=== PATIENT | female | born 1990 | race Caucasian/White ===

== ENCOUNTER 2019-05-28 15:58 | Emergency (ER) | payer OTHER ==
[2019-05-28 16:12] VITALS: BP 100/52; PULSE 104; TEMP 98.5; BMI 21.6
--- NOTE | 2019-05-28 16:13 | PDOC ---
Rapid Medical Evaluation Chief Complaint: Pain Time Seen by Provider: 05/28/19 16:08 Medical Evaluation: Allergies Allergy/AdvReac Type Severity Reaction Status Date / Time No Known Allergies Allergy Verified 05/28/19 16:08 05/28/19 16:11 Pt c/o: 15 weeks preg, 2 days of lower abd pain, no other complaints, had u/s 2 weeks ago and normal IUP Pt on brief exam: vss, no cva tenderness Pt ordered for: labs, urine, and u/s Pt to proceed to the ED Discharge Disposition - Diagnosis Abdominal pain - Discharge Dispostion Disposition: ELOPED - Referrals Referrals: ON STAFF,NOT [Primary Care Provider] - - Patient Instructions - Post Discharge Activity
[2019-05-28] MEDS ORDERED: ACETAMINOPHEN 500 MG TABLET (FP) PO ONE (16:14)
[2019-05-28] MEDS ORDERED: ACETAMINOPHEN 325 MG TABLET (FP) ONE (17:47)
[2019-05-28 19:43] LABS: HYALINE CASTS 7 /lpf (0-8); URINE APPEARANCE CLEAR; URINE BACTERIA 1021.4 /hpf (NEGATIVE); URINE BILIRUBIN NEGATIVE (NEGATIVE); URINE COLOR YELLOW; URINE GLUCOSE (UA) NEGATIVE (NEGATIVE); URINE KETONE 3+ (NEGATIVE); URINE LEUK ESTERASE TRACE (NEGATIVE); URINE NITRITE NEGATIVE (NEGATIVE); URINE PROTEIN NEGATIVE (NEGATIVE); URINE RBC 2 /hpf (0-4); URINE UROBILINOGEN 0.2 mg/dL (0.2-1.0); URINE WBC 18 /hpf (0-5)
== END 2019-05-28 19:45 | disposition left against medical advice (07) ==
LOC: JER 15:58
DX: R10.9 Unspecified abdominal pain (principal)
CPT/HCPCS: 76801-TC; 81003; 87077; 87086; 99281-25

== ENCOUNTER 2019-11-19 05:00 | Inpatient (IN) | payer OTHER ==
[2019-11-19] MEDS ORDERED: AMPICILLIN SODIUM 2 GM VIAL ONE (07:23)
[2019-11-19] MEDS ORDERED: AMPICILLIN - 2 GM in SODIUM CHLORIDE 100 ML IVPB ONE (07:24)
[2019-11-19] MEDS ORDERED: ELECTROLYTE-148 SOLN 1,000 ML IV SCH (07:30)
--- NOTE | 2019-11-19 07:33 | HP ---
Past Medical History - Primary Care Physician PCP:: Ronald Goodman - Admission Chief Complaint: labor pain History of Present Illness: Patient reports contraction worsening since 3 am. She presented with partial records History Source: Patient Limitations to Obtaining History: No Limitations - Past Medical History MARRIAGE COUNSELOR: No: Alzheimer's, CVA, Dementia, Migraine, Multiple Sclerosis, Peripheral Neuropathy, Parkinson's, Seizure, Syncope, TIA, Vertigo, Other Cardiovascular: No: AFIB, Aneurysm, Aortic Insufficiency, Aortic Stenosis, CAD, CHF, Deep Vein Thrombosis, HTN, Hyperlipdemia, MS, Mitral Insufficiency, Mitral Stenosis, Murmur, Pulmonary Hypertension, Other Pulmonary: No: Asthma, Bronchitis, Cancer, COPD, O2 Dependent, Pneumonia, Previously Intubated, Pulmonary Embolus, Pulmonary Fibrosis, Sleep Apnea, Other Gastrointestinal: No: Ascites, Cancer, Constipation, Crohn's Disease, Diverticulitis, Diverticulosis, Esophageal Varices, Gastritis, GERD, GI Bleed, Hemorrhoids, Hiatal Hernia, Inflamatory Bowel Disease, Irritable Bowel Disease, Pancreatitis, Peptic Ulcer Disease, Ulcerative Colitis, Other Hepatobiliary: No: Cirrhosis, Cholelithiasis, Cholecystitis, Choledocholithiasis , Hepatitis A, Hepatitis B, Hepatitis C, Other Renal/: No: Renal Failure, Renal Inusuff, BPH, Cancer, Hematuria, Hemodialysis , Neurogenic Bladder, Renal Calculi, UTI, Other Reproductive: No: Ectopic , Endometriosis, Fibroids, PID, Polycystic Ovary Syndrome, Postmenopausal, Other ...: 9 ...Para: 2 ...Term: 2 ...: 0 ...Spon : 2 ...Induced : 4 ...LMP: 01/31/19 ... Weeks Gestation by Dates: 41.3 ...EDC by Dates: 11/09/19 ...EDC by Sono: 11/14/19 Heme/Onc: No: Anemia, B12 Deficiency, Bleeding Disorder, Cancer, Current Chemotherapy, Current Radiation Therapy, Hemochromatosis, Hypercoaguable State, Myeloproliferative Synd, Sickle Cell Disease, Sickle Cell Trait, Thrombocytopenia, Other Infectious Disease: No: AIDS, C-Diff, Herpes Zoster, HIV, MRSA, STD's, Tuberculosis, VREF, Other Psych: No: Addictions, Anxiety, Bipolar, Depression, Panic, Psychosis, Schizophrenia, Other Musculoskeletal: No: Bursitis, Chronic low back pain, Hemiparesis, Hemiplegia, Osteoarthritis, Paraplegia, Other Rheumatology: No: Fibromyalgia, Gout, Lupus, Rheumatoid Arthritis, Sarcoidosis, Vasculitis, Other ENT: No: Allergic Rhinitis, Sinusitis, Other Endocrine: No: Dakota's Disease, Randy's Disease, Diabetes Insipidus, Diabetes Mellitus, Hyperparathyroidism, Hyperthyroidism, Hypothyroidism, Osteopenia, SIADH, Other Dermatology: No: Basal Cell, Cellulitis, Eczema, Melanoma, Psoriasis, Squamous Cell, Other - Past Surgical History Past Surgical History: Yes: None Hx Myomectomy: No Hx Transabdominal Cerclage: No - Smoking History Smoking history: Never smoked - Alcohol/Substance Use Hx Alcohol Use: No History of Substance Use: reports: None Home Medications - Allergies Allergies/Adverse Reactions: Allergies Allergy/AdvReac Type Severity Reaction Status Date / Time camphor [From Vicks Vaporub] Allergy Hives Verified 11/19/19 05:46 eucalyptus Allergy Hives Verified 11/19/19 05:46 [From Vicks Vaporub] menthol [From Vicks Vaporub] Allergy Hives Verified 11/19/19 05:46 petrolatum,white Allergy Hives Verified 11/19/19 05:46 [From Vicks Vaporub] turpentine oil Allergy Hives Verified 11/19/19 05:46 [From Vicks Vaporub] wheat Allergy Hives Verified 11/19/19 05:46 Family Medical History Family History: Denies Review of Systems Unable to obtain ROS, reason: labor pain - Review of Systems Constitutional: reports: No Symptoms Eyes: reports: No Symptoms HENT: reports: No Symptoms Neck: reports: No Symptoms Cardiovascular: reports: No Symptoms Respiratory: reports: No Symptoms Gastrointestinal: reports: No Symptoms Genitourinary: reports: No Symptoms Breasts: reports: No Symptoms Reported Musculoskeletal: reports: No Symptoms Integumentary: reports: No Symptoms Neurological: reports: No Symptoms Endocrine: reports: No Symptoms Hematology/Lymphatic: reports: No Symptoms Psychiatric: reports: No Symptoms Physical Exam - Maternity Vital Signs: Vital Signs Temperature 98.1 F 11/19/19 05:47 Pulse Rate 93 H 11/19/19 05:47 Respiratory Rate 20 11/19/19 05:47 Blood Pressure 109/61 11/19/19 05:47 O2 Sat by Pulse Oximetry (%) Constitutional: Yes: Well Nourished Eyes: Yes: WNL HENT: Yes: Atraumatic Neck: Yes: Supple Cardiovascular: Yes: Regular Rate and Rhythm Breast(s): Yes: Other (deferred) - Abdominal Exam/OB Number of Fetuses: Single Presentation: Vertex Contractions: Yes Regularity: Regular Intensity: Mod/Strong Monitor Mode: External Heart Rate (range): 135 Category: I Accelerations: Uniform Decelerations: None - Vaginal Exam/OB Vaginal Bleediing: No Speculum Exam: No Dilatation (cm): 3 Effacement (%): 70 Amniotic Membrane Status: Intact Presentation: Vertex/Position Station: -2 - Physical Exam Musculoskeletal: Yes: WNL Extremities: Yes: WNL Edema: Yes Edema: LLE: Trace, RLE: Trace Integumentary: Yes: WNL Deep Tendon Reflex Grade: Normal +2 ...Motor Strength: WNL Psychiatric: Yes: Alert, Oriented - Labs Lab Results: Full labs ordered Imaging - Results Ultrasound: Other (M sono previously performed) Problem List - Problems (1) Code(s): Z34.90 - ENCNTR FOR SUPRVSN OF NORMAL , UNSP, UNSP TRIMESTER Qualifiers: Weeks of gestation: 40 weeks Qualified Code(s): Z3A.40 - 40 weeks gestation of Assessment/Plan 29 y/o P2 @ 40.5wks by QI of 11/14/19 as per patient. She is an external patient with limited OB documentation, FHT cat I now, desiring IV pain medication. Patient denies any complication with this . -Admit - labs -Obtain MFM sono -Inform consent -GBS prophylaxis -Pain control as indicated -Re-evaluate accordingly
[2019-11-19] MEDS ORDERED: BUTORPHANOL TARTRATE 1 MG/ML VIAL IVPB ONE (07:46)
[2019-11-19 07:51] VITALS: BMI 26.1
[2019-11-19] MEDS ORDERED: BUTORPHANOL TARTRATE 1 MG/ML VIAL ONE ×2 (07:53)
[2019-11-19] MEDS ORDERED: PROMETHAZINE HCL 25 MG/1 ML VIAL ONE (07:53)
[2019-11-19 08:40] LABS: BASO % 0.4 % (0-2.0); EOS % 0.2 % (0-4.5); HEMATOCRIT 31.1 % (32.4-45.2); HEMOGLOBIN 9.7 GM/dL (10.7-15.3); MCH 22.6 pg (25.7-33.7); MCHC 31.3 g/dl (32.0-36.0); MEAN CELL VOLUME 72.1 fl (80-96); MEAN PLT VOLUME 8.9 fl (7.5-11.1); MONO % 5.2 % (3.8-10.2); NEUT % 85.2 % (42.8-82.8); PLATELET COUNT 400 K/MM3 (134-434); RBC 4.32 M/mm3 (3.60-5.2); RDW 19.1 % (11.6-15.6); WHITE BLOOD COUNT 16.3 K/mm3 (4.0-10.0)
[2019-11-19 08:54] LABS: BLOOD UREA NITROGEN 8.4 mg/dL (7-18); CALCIUM 8.7 mg/dL (8.5-10.1); CREATININE 0.6 mg/dL (0.55-1.3); POTASSIUM 3.8 mmol/L (3.5-5.1)
[2019-11-19 09:15] LABS: COCAINE, UR NEGATIVE ng/ml (CUTOFF=300); METHADONE, UR NEGATIVE ng/ml (CUTOFF=300); OPIATES, URI NEGATIVE ng/ml (CUTOFF=300); PHENCYCLIDINE,URINE NEGATIVE ng/ml (CUTOFF=25); URINE AMPHETAMINES NEGATIVE ng/ml (CUTOFF=500); URINE BARBITURATES NEGATIVE ng/ml (CUTOFF=200); URINE BENZODIAZEPINES NEGATIVE ng/ml (CUTOFF=200)
[2019-11-19] MEDS ORDERED: OXYTOCIN 20 UNITS in 0.9% NS 20 UNIT/1,000 ML INFUS.BAG IV ONE ×3 (09:24→14:04)
[2019-11-19] MEDS ORDERED: LIDOCAINE HCL 1% PRESERVATIVE FREE - 30ML VIAL ONE ×2 (09:25→14:15)
[2019-11-19 09:34] LABS: INR 0.94 (0.83-1.09); PROTHROMBIN TIME (PATIENT) 11.1 SEC (9.7-13.0)
[2019-11-19 09:36] LABS: ACTIVATED PTT 23.9 SECONDS (25.2-36.5)
--- NOTE | 2019-11-19 10:08 | PN ---
Progress Note (short form) - Note Progress Note: cx 8 cm, 80 vx -1 , fhr cat 1, AROM , light mec. stain .anticipate vaginal delivery
[2019-11-19] MEDS ORDERED: AMPICILLIN - 1 GM in SODIUM CHLORIDE 100 ML IVPB SCH (11:24)
[2019-11-19] MEDS ORDERED: BENZOCAINE 28 GM HEMORRHOIDAL OINTMENT TP PRN (11:50)
[2019-11-19] MEDS ORDERED: WITCH HAZEL 50% (TUCKS) 40 PAD/JAR PAD TP PRN (11:50)
[2019-11-19] MEDS ORDERED: BENZOCAINE 20% 57 GM BOTTLE TP PRN (11:50)
[2019-11-19] MEDS ORDERED: BISACODYL 10 MG SUPP.RECT RC PRN (11:50)
[2019-11-19] MEDS ORDERED: METHYLERGONOVINE MALEATE 0.2 MG/1 ML AMP IM PRN (11:50)
--- NOTE | 2019-11-19 11:54 | PN ---
Delivery - Delivery Vaginal Delivery: Spontaneous Type of Anesthesia: None Episiotomy/Laceration: None (cx fully dilated , head on pernium ,head delivered ,nasopharynx suctioned , no cord, ant. and post, shoulder with no difficulty , live baby girl 9/9 , placenta complete , no laceration , placeta complete , EBL 300cc, no complication) EBL (cc): 300 Delivery, Single - Stages of Labor Date 1st Stage Initiatied: 11/19/19 Time 1st Stage Initiated: 02:00 Date 2nd Stage Initiated: 11/19/19 Time 2nd Stage Initiated: 10:45 Date of Delivery: 11/19/19 Time of Delivery: 10:55 Time Placenta Delivered: 11:00 - Condition of Infant Gravel Machine Operator/Bombsight Specialist Present: No Infant Gender: Female Position: Left, OA Total Hours ROM (Hrs/Mins): 2H - 1 Minute Total Score: 9 5 Minutes Total Score: 9 - [place] Feeding Plan Initial Plan: Elected not to breastfeed exclusively throughout hospitalization
[2019-11-19] MEDS ORDERED: D5W-LR W/ 20 UNITS OXYTOCIN 1,000 ML IV SCH (12:00)
[2019-11-19] MEDS: OXYTOCIN 20 UNITS in 0.9% NS 20 UNIT/1,000 ML INFUS.BAG IV SCH (14:00)
[2019-11-19] MEDS: ACETAMINOPHEN 325 MG TABLET (FP) PO PRN ×2 (14:37→21:49)
[2019-11-19] MEDS: IBUPROFEN 600 MG TABLET (FP) PO PRN ×2 (14:38→21:49)
[2019-11-19] MEDS ORDERED: SODIUM CHLORIDE 0.9%/KCL 20 MEQ/1,000 ML INFUS.BAG IV SCH (14:45)
[2019-11-19] MEDS: FERROUS SO4 325 MG TABLET (FP) PO SCH (21:42)
--- NOTE | 2019-11-20 07:54 | PN ---
Post Progress Note - Subjective Subjective: c/o bodyache & cramps Post Day: 1 Type of Delivery: Vital Signs: Vital Signs Temperature 98.2 F 11/20/19 05:34 Pulse Rate 95 H 11/20/19 05:34 Respiratory Rate 20 11/20/19 05:34 Blood Pressure 116/73 11/20/19 05:34 O2 Sat by Pulse Oximetry (%) Breast Exam: Yes: Soft, Other (BF). No: Engorged Uterus: Yes: Fundus Firm, Fundus below umbilicus, Non-tender Lochia: Yes: Rubra Lochia, amount: Moderate Extremities: Yes: Calves non-tender Perineum: Yes: Intact Activity: Ambulating - Labs Labs: CBC WBC 16.3 K/mm3 (4.0-10.0) H 11/19/19 08:05 RBC 4.32 M/mm3 (3.60-5.2) 11/19/19 08:05 Hgb 9.7 GM/dL (10.7-15.3) L 11/19/19 08:05 Hct 31.1 % (32.4-45.2) L D 11/19/19 08:05 MCV 72.1 fl (80-96) L 11/19/19 08:05 MCH 22.6 pg (25.7-33.7) L 11/19/19 08:05 MCHC 31.3 g/dl (32.0-36.0) L 11/19/19 08:05 RDW 19.1 % (11.6-15.6) H 11/19/19 08:05 Plt Count 400 K/MM3 (134-434) D 11/19/19 08:05 MPV 8.9 fl (7.5-11.1) 11/19/19 08:05 Absolute Neuts (auto) 13.9 K/mm3 (1.5-8.0) H 11/19/19 08:05 Neutrophils % 85.2 % (42.8-82.8) H D 11/19/19 08:05 Lymphocytes % 9.0 % (8-40) D 11/19/19 08:05 Monocytes % 5.2 % (3.8-10.2) 11/19/19 08:05 Eosinophils % 0.2 % (0-4.5) D 11/19/19 08:05 Basophils % 0.4 % (0-2.0) 11/19/19 08:05 Nucleated RBC % 0 % (0-0) 11/19/19 08:05 Problem List - Problems (1) Encounter for care after hospital delivery Code(s): Z39.2 - ENCOUNTER FOR ROUTINE FOLLOW-UP Assessment/Plan ass Anemic stable, asymptomatic discharge tomorrow.
[2019-11-20 08:09] LABS: RUBELLA ANTIBODY,IGM <20.0 AU/mL (0.0-19.9)
[2019-11-20 08:44] LABS: BASO % 0.6 % (0-2.0); EOS % 0.9 % (0-4.5); HEMATOCRIT 29.7 % (32.4-45.2); HEMOGLOBIN 9.2 GM/dL (10.7-15.3); MCH 22.5 pg (25.7-33.7); MCHC 31.1 g/dl (32.0-36.0); MEAN CELL VOLUME 72.4 fl (80-96); MEAN PLT VOLUME 8.7 fl (7.5-11.1); MONO % 6.8 % (3.8-10.2); NEUT % 76.7 % (42.8-82.8); PLATELET COUNT 373 K/MM3 (134-434); RBC 4.11 M/mm3 (3.60-5.2); RDW 19.4 % (11.6-15.6); WHITE BLOOD COUNT 15.5 K/mm3 (4.0-10.0)
[2019-11-20] MEDS: FERROUS SO4 325 MG TABLET (FP) PO SCH ×2 (10:12→22:00)
[2019-11-20] MEDS: IBUPROFEN 600 MG TABLET (FP) PO PRN ×3 (10:12→22:00)
[2019-11-20] MEDS: ACETAMINOPHEN 325 MG TABLET (FP) PO PRN ×3 (10:13→22:00)
[2019-11-20] MEDS: PRENATAL VITAMINS W/ FOLIC ACID TABLET (FP) PO SCH (10:14)
[2019-11-20] MEDS: OXYTOCIN 20 UNITS in 0.9% NS 20 UNIT/1,000 ML INFUS.BAG IV SCH (19:50)
[2019-11-20] MEDS ORDERED: SENNOSIDES/DOCUSATE COMBO (SENNA PLUS) TABLET (UD) PO PRN (22:00)
[2019-11-21 09:12] VITALS: BP 102/64; PULSE 84; TEMP 98.5
--- NOTE | 2019-11-21 09:16 | DS ---
Physical Examination Vital Signs: Vital Signs Temperature 98.5 F 11/21/19 09:00 Pulse Rate 84 11/21/19 09:00 Respiratory Rate 18 11/21/19 09:00 Blood Pressure 102/64 11/21/19 09:00 O2 Sat by Pulse Oximetry (%) Constitutional: Yes: Well Nourished, No Distress, Calm Eyes: Yes: WNL, Conjunctiva Clear, EOM Intact HENT: Yes: WNL, Atraumatic, Normocephalic Neck: Yes: WNL, Supple, Trachea Midline Cardiovascular: Yes: WNL, Regular Rate and Rhythm Respiratory: Yes: WNL, Regular, CTA Bilaterally Gastrointestinal: Yes: WNL, Normal Bowel Sounds Musculoskeletal: Yes: WNL Extremities: Yes: WNL Edema: No Integumentary: Yes: WNL Neurological: Yes: WNL, Alert, Oriented ...Motor Strength: WNL Psychiatric: Yes: WNL Labs: CBC, BMP 11/20/19 08:20 11/19/19 08:05 Discharge Summary Problems reviewed: Yes Reason For Visit: LABOR Current Active Problems Encounter for care after hospital delivery (Acute) (Acute) Hospital Course: Patient presented in labor She had an uncomplicated She met all milestones She was discharged home in stable condition Condition: Stable - Instructions Diet, Activity, Other Instructions: Regular Diet Follow up with your providers at [facility] for your visit Referrals: Stanley Orellana MD [Staff Physician] - Disposition: HOME - Home Medications Comprehensive Discharge Medication List: Ambulatory Orders Ibuprofen 600 mg PO Q6H PRN #30 tablet 11/21/19
[2019-11-21] MEDS: PRENATAL VITAMINS W/ FOLIC ACID TABLET (FP) PO SCH (10:18)
[2019-11-21] MEDS: FERROUS SO4 325 MG TABLET (FP) PO SCH (10:19)
[2019-11-22 22:08] LABS: OXYCODONE BLOOD Negative ng/mL (Cutoff:5); PCP BLOOD Negative ng/mL (Cutoff:8)
== END 2019-11-21 17:00 | disposition home or self-care (01) | DRG 560 ==
LOC: JDEL 05:00 → JLDR 07:20 → J3W 14:21
PROVIDERS: ADMIT Obstetrics & Gynecology; ATTEND Obstetrics & Gynecology
PROC: 10E0XZZ Delivery of Products of Conception, External Approach (ICD-10-PCS; principal; 2019-11-19)
DX: O48.0 Post-term pregnancy (principal); O77.0 Labor and delivery complicated by meconium in amniotic fluid; Z3A.41 41 weeks gestation of pregnancy; Z37.0 Single live birth
CPT/HCPCS: 36415; 36600; 59409; 80048; 80307; 82803; 85025; 85610; 85730; 86593; 86762; 86850; 86900; 86901; 87340; 87389